=== PATIENT | male | born 1955 | race Caucasian/White ===

== ENCOUNTER → 2024-02-08 | Day surgery (SDC) | payer OTHER ==
[~2024-02-08] VITALS: Ht 162.5 cm; Wt 63.5 kg
[~2024-02-08] MED LIST: 'KLONOPIN0.5 MG PO; CLARITIN10 MG PO; DEPAKOTE ER250 MG PO; DULCOLAX STOOL100 M1 PO; FISH OIL 1,0001 EAC2 PO; Lactated Ringer's Solution 1,000 ML IV ONE; Lidocaine Hydrochloride 2% 10 ML AMP IM ONE; MAGNESIUM OXID400 MG PO; Mysoline50 MG PO; NAPHCON-A EYE D15 ML OD; PROPOFOL 200 MG/20 ML VIAL IV ONE; SPIRIVA RESPIMAT4 GM INH; TOPROL XL25 MG PO; VITAMIN B-121000 MC1 SL; VITAMIN D350 MCG PO; ZYPREXA20 M1 PO; fentaNYL CITRATE 100 MCG/2 ML VIAL IV ONE
[2024-02-08 08:16] VITALS: BP 151/79
[2024-02-08 11:40] VITALS: BP 96/64
[2024-02-08 11:55] VITALS: BP 104/61
[2024-02-08 12:10] VITALS: BP 102/63
== END | disposition home or self-care (01) ==
LOC: SDC 02-04 08:45
PROVIDERS: ATTEND Surgery
DX: R63.4 Abnormal weight loss (principal); I10 Essential (primary) hypertension; E78.5 Hyperlipidemia, unspecified; F41.9 Anxiety disorder, unspecified; F20.9 Schizophrenia, unspecified; F17.210 Nicotine dependence, cigarettes, uncomplicated; Z79.899 Other long term (current) drug therapy

== ENCOUNTER 2024-04-19 11:55 | Emergency (ER) | payer OTHER ==
[~2024-04-19 11:55] MED LIST changes: -Lactated Ringer's Solution 1,000 ML IV ONE; -Lidocaine Hydrochloride 2% 10 ML AMP IM ONE; -PROPOFOL 200 MG/20 ML VIAL IV ONE; -fentaNYL CITRATE 100 MCG/2 ML VIAL IV ONE
[2024-04-19 12:36] LABS: BASO # 0.1 10*3/uL (0.0-0.1); BASO % 0.5 % (0.0-1.0); EOS # 0.1 10*3/uL (0.0-0.4); HEMATOCRIT 38.9 % (42.0-52.0); LYMPH # 1.1 10*3/uL (1.3-4.4); LYMPH % 11.3 % (27.0-41.0); MEAN CELL VOLUME 91.5 fl (80.0-94.0); MEAN CORPUSCULAR HGB 31.8 pg (27.0-31.0); MEAN CORPUSCULAR HGB CONC 34.7 g/dl (33.0-37.0); MEAN PLATELET VOLUME 11.3 fl (9.6-12.3); MONO # 0.5 10*3/uL (0.1-1.0); MONO % 4.5 % (3.0-9.0); NEUT % 81.1 % (47.0-73.0); PLATELET COUNT AUTOMATED 190 10*3/uL (130-400); RED BLOOD COUNT 4.25 10*6/uL (4.50-5.90); RED CELL DISTRI WIDTH 13.2 % (0-14.5); WHITE BLOOD COUNT 9.9 10*3/uL (4.8-10.8)
[2024-04-19 13:00] LABS: BUN 12 mg/dl (9-23); CHLORIDE 108 mmol/L (98-107); POTASSIUM 3.3 mmol/L (3.4-5.1)
== END 2024-04-19 15:56 | disposition home or self-care (01) ==
LOC: ED 11:55
PROVIDERS: Internal Medicine
DX: T17.928A Food in respiratory tract, part unspecified causing other injury, initial encounter (principal); W44.F3XA Food entering into or through a natural orifice, initial encounter; Y93.89 Activity, other specified; Y92.89 Other specified places as the place of occurrence of the external cause; Y99.8 Other external cause status

== ENCOUNTER 2024-08-30 20:58 | Inpatient (IN) | payer OTHER ==
[~2024-08-30] VITALS: Ht 162.5 cm; Wt 57.0 kg
[~2024-08-30 20:58] MED LIST changes: +B121000 MCG/2 IM; +DEPAKOTE125 M1 PO; +EXEL13.31 T; +FLUVOXAMINE100 MG PO; +FLUVOXAMINE50 MG PO; +NAMENDA-5 PO; +NICODERM CQ1 EAC2 T; +RISPERDAL3 M1 PO
[2024-08-30 21:03] VITALS: BP 110/60
[2024-08-30 21:41] LABS: BASO % 0.2 % (0.0-1.0); EOS # 0.1 10*3/uL (0.0-0.4); EOS % 1.1 % (1.0-4.0); HEMATOCRIT 35.4 % (42.0-52.0); MEAN CELL VOLUME 92.9 fl (80.0-94.0); MEAN CORPUSCULAR HGB 31.5 pg (27.0-31.0); MEAN CORPUSCULAR HGB CONC 33.9 g/dl (33.0-37.0); MEAN PLATELET VOLUME 11.1 fl (9.6-12.3); MONO # 0.5 10*3/uL (0.1-1.0); MONO % 5.6 % (3.0-9.0); NEUT # 7.9 10*3/uL (2.3-7.9); PLATELET COUNT AUTOMATED 161 10*3/uL (130-400); RED BLOOD COUNT 3.81 10*6/uL (4.50-5.90); RED CELL DISTRI WIDTH 13.5 % (0-14.5); WHITE BLOOD COUNT 9.5 10*3/uL (4.8-10.8)
[2024-08-30 22:03] LABS: BUN 16 mg/dl (9-23); CHLORIDE 106 mmol/L (98-107); POTASSIUM 4.1 mmol/L (3.4-5.1)
[2024-08-30 22:04] LABS: ETHYL ALCOHOL < 3.0 mg/dl (<3)
[2024-08-30 23:02] LABS: BILIRUBIN Negative (Negative); BLOOD Negative (Negative); CLARITY Clear (Clear); COLOR Yellow (Yellow); GLUCOSE Negative (Negative); KETONE Negative (Negative); LEUKO ESTERASE Negative (Negative); NITRITE Negative (Negative); PH 7.5 (4.5-8.0); SPECIFIC GRAVITY <= 1.005 (1.001-1.030); UROBILINOGEN 0.2 E.U./dl (0.0-1.0)
[2024-08-30 23:09] LABS: URINE AMPHETAMINES Negative (1000ng/ml); URINE BARBITURATES Negative (200ng/ml); URINE BENZODIAZEPINES Negative (200ng/ml); URINE CANNABINOIDS (THC) Negative (50ng/ml); URINE COCAINE Negative (300ng/ml); URINE METHADONE Negative (300ng/ml); URINE OPIATES Negative (300ng/ml); URINE PHENCYCLIDINE Negative (25ng/ml)
[2024-08-30 23:38] LABS: RBC 0-2 rbc/hpf (0-2); WBC 0-2 wbc/hpf (0-5)
[2024-08-31] MEDS ORDERED: HYDROXYZINE PAM50 MG PO (01:24)
[2024-08-31] MEDS ORDERED: ATIVAN0.5 MG PO ×2 (01:25→01:26)
[2024-08-31] MEDS ORDERED: Magnesium Hydroxide 30 ML UDC PO PRN (01:55)
[2024-08-31] MEDS ORDERED: MG-AL HYDROXIDE/SIMETICONE 30 ML UDC PO PRN (01:55)
[2024-08-31] MEDS ORDERED: ACETAMINOPHEN 325 MG TAB PO PRN (01:55)
[2024-08-31 01:59] VITALS: BP 141/70
[2024-08-31] MEDS ORDERED: Menthol/Zinc Oxide 4 GM THIN T PRN (02:00)
[2024-08-31] MEDS ORDERED: FISH OIL 1,0001 EAC1 PO (02:16)
[2024-08-31] MEDS ORDERED: POLYTRIM 1000010 ML OU (02:27)
[2024-08-31] MEDS ORDERED: SODIUM CHLORI1000 M5 PO (02:34)
[2024-08-31] MEDS ORDERED: VITAMIN B121000 MC3 PO (02:38)
[2024-08-31] MEDS ORDERED: SEPTDS PO (02:41)
[2024-08-31] MEDS ORDERED: RISPERIDONE 250 MG/0.7 ML SQ SCH ×2 (02:50→09:00)
[2024-08-31 02:54] VITALS: BP 141/70
[2024-08-31] MEDS ORDERED: Ziprasidone Mesylate 20 MG VIAL IM PRN (02:55)
[2024-08-31] MEDS ORDERED: hydrOXYzine hydrochloride 50 MG/ML VIAL IM PRN (02:55)
[2024-08-31] MEDS ORDERED: LORazepam 1 MG TAB PO PRN (02:55)
[2024-08-31] MEDS ORDERED: IPRATROPIUM BROMIDE 0.5 MG/2.5 ML AMP NEB SCH (04:25)
[2024-08-31 07:25] LABS: VALPROIC ACID (DEPAKENE) 34.9 ug/ml (50-100)
[2024-08-31 07:45] LABS: VITAMIN D, 25-HYDROXY 63.1 ng/mL (30-100)
[2024-08-31 08:29] VITALS: BP 118/71
[2024-08-31] MEDS ORDERED: fluvoxaMINE Maleate 50 MG TAB PO SCH ×2 (09:00→21:00)
[2024-08-31] MEDS ORDERED: DIVALPROEX (DR) 500 MG TAB PO SCH (09:00)
[2024-08-31] MEDS ORDERED: Sulfamethoxazole/Trimethopri 1 TAB TAB PO SCH (09:00)
[2024-08-31] MEDS ORDERED: Memantine Hydrochloride 5 MG TAB PO SCH (09:00)
[2024-08-31] MEDS ORDERED: DIVALPROEX SODIUM 125 MG TAB PO SCH (09:00)
[2024-08-31] MEDS ORDERED: RIVASTIGMINE 13.3 MG/24 HR TDM T SCH (09:00)
[2024-08-31] MEDS ORDERED: DOCUSATE SODIUM 100 MG CAP PO SCH (10:00)
[2024-08-31] MEDS ORDERED: LORATADINE 10 MG TAB PO SCH (10:00)
[2024-08-31] MEDS ORDERED: Nicotine 21 MG PATCH T SCH (10:00)
[2024-08-31] MEDS ORDERED: Cholecalciferol 2,000 UNIT TABLET (50 MCG) PO SCH (10:00)
[2024-08-31] MEDS ORDERED: METOPROLOL SUCCINATE XR 25 MG TAB PO SCH (10:00)
[2024-08-31] MEDS ORDERED: HALOPERIDOL 5 MG TAB PO ONE (11:15)
[2024-08-31] MEDS ORDERED: Water, Sterile 10 ML VIAL ONE (15:30)
[2024-08-31] MEDS ORDERED: HALOPERIDOL 5 MG TAB PO PRN (16:40)
[2024-08-31] MEDS ORDERED: Haloperidol Lactate 5 MG/ML AMP ONE (19:14)
[2024-08-31] MEDS ORDERED: diphenhydrAMINE hydrochloride 50 MG/ML VIAL ONE (19:14)
[2024-08-31 20:00] VITALS: BP 97/64
[2024-09-01 07:25] VITALS: BP 98/64
[2024-09-01] MEDS ORDERED: IPRATROPIUM BROMIDE 0.5 MG/2.5 ML AMP NEB PRN (08:20)
[2024-09-01] MEDS ORDERED: diphenhydrAMINE hydrochloride 25 MG CAP PO ONE (09:25)
[2024-09-01] MEDS ORDERED: HALOPERIDOL 5 MG TAB PO ONE (09:25)
[2024-09-01] MEDS ORDERED: Ziprasidone Mesylate 20 MG VIAL IM ONE (10:55)
[2024-09-01] MEDS ORDERED: Water, Sterile 10 ML VIAL IM ONE (11:05)
[2024-09-01] MEDS ORDERED: SODIUM CHLORIDE 0.9% 1,000 ML IV ONE (13:30)
[2024-09-01] MEDS ORDERED: diphenhydrAMINE hydrochloride 25 MG CAP PO SCH (18:00)
[2024-09-01] MEDS ORDERED: HALOPERIDOL 5 MG TAB PO SCH (18:00)
[2024-09-01 20:00] VITALS: BP 141/76
[2024-09-01] MEDS ORDERED: chlorproMAZINE Hydrochloride 50 MG/2 ML AMP IM PRN (21:15)
[2024-09-02 08:00] VITALS: BP 113/80
[2024-09-02] MEDS ORDERED: HALOPERIDOL DECANOATE 100 MG/ML AMP IM SCH (09:00)
[2024-09-02] MEDS ORDERED: Nicotine 14 MG PATCH T SCH (11:00)
[2024-09-02] MEDS ORDERED: [UNRECOGNIZED DRUG - OTHER] PO SCH (13:00)
[2024-09-02 20:00] VITALS: BP 108/68
[2024-09-03 08:00] VITALS: BP 108/67
[2024-09-03] MEDS ORDERED: clonAZEPAM 0.5 MG TAB PO ONE (11:45)
[2024-09-03] MEDS ORDERED: clonAZEPAM 0.5 MG TAB PO SCH (16:00)
[2024-09-03 20:00] VITALS: BP 109/68
[2024-09-04 08:00] VITALS: BP 102/72
[2024-09-04 08:26] LABS: BUN 14 mg/dl (9-23); CHLORIDE 100 mmol/L (98-107); POTASSIUM 4.3 mmol/L (3.4-5.1)
[2024-09-04 08:29] LABS: CPK 302 U/L (34-171)
[2024-09-04] MEDS ORDERED: clonAZEPAM 0.5 MG TAB PO ONE (15:00)
[2024-09-04 20:00] VITALS: BP 106/60
[2024-09-04] MEDS ORDERED: clonAZEPAM 0.5 MG TAB PO SCH ×2 (21:00)
[2024-09-05 08:00] VITALS: BP 95/58
[2024-09-05] MEDS ORDERED: [UNRECOGNIZED DRUG - OTHER] PO SCH ×2 (13:00→21:00)
[2024-09-05 20:00] VITALS: BP 91/64
[2024-09-06] MEDS ORDERED: [UNRECOGNIZED DRUG - OTHER] PO SCH ×2 (07:00→21:00)
[2024-09-06 08:00] VITALS: BP 104/77
[2024-09-06] MEDS ORDERED: Nicotine 14 MG PATCH T SCH (09:00)
[2024-09-06] MEDS ORDERED: fluvoxaMINE Maleate 50 MG TAB PO SCH ×2 (09:00→21:00)
[2024-09-06 20:00] VITALS: BP 102/72
[2024-09-07 06:29] LABS: BASO % 0.5 % (0.0-1.0); EOS # 0.3 10*3/uL (0.0-0.4); EOS % 3.8 % (1.0-4.0); MEAN CELL VOLUME 92.4 fl (80.0-94.0); MEAN CORPUSCULAR HGB 31.7 pg (27.0-31.0); MEAN CORPUSCULAR HGB CONC 34.2 g/dl (33.0-37.0); MONO # 0.5 10*3/uL (0.1-1.0); MONO % 6.7 % (3.0-9.0); NEUT # 4.8 10*3/uL (2.3-7.9); NEUT % 60.6 % (47.0-73.0); PLATELET COUNT AUTOMATED 194 10*3/uL (130-400); RED BLOOD COUNT 3.57 10*6/uL (4.50-5.90); RED CELL DISTRI WIDTH 13.2 % (0-14.5); WHITE BLOOD COUNT 7.9 10*3/uL (4.8-10.8)
[2024-09-07 06:35] LABS: ALKALINE PHOSPHATASE 42 U/L (46-116); BUN 15 mg/dl (9-23); CHLORIDE 99 mmol/L (98-107); SGPT/ALT 15 U/L (5-49); TOTAL PROTEIN 5.7 gm/dL (6.0-8.0)
[2024-09-07 08:00] VITALS: BP 104/74
[2024-09-07 20:00] VITALS: BP 108/66
[2024-09-08 08:27] VITALS: BP 146/90
[2024-09-08] MEDS ORDERED: VITAMIN E 400 IU CAP PO SCH (09:00)
[2024-09-08 20:36] VITALS: BP 109/68
[2024-09-08] MEDS ORDERED: [UNRECOGNIZED DRUG - OTHER] PO SCH (21:00)
[2024-09-08] MEDS ORDERED: RAMELTEON 8 MG TAB PO SCH (21:00)
[2024-09-09 08:00] VITALS: BP 108/88
[2024-09-09 12:24] LABS: ALKALINE PHOSPHATASE 44 U/L (46-116); BUN 14 mg/dl (9-23); CHLORIDE 99 mmol/L (98-107); POTASSIUM 3.9 mmol/L (3.4-5.1); SGPT/ALT 16 U/L (5-49); TOTAL PROTEIN 6.2 gm/dL (6.0-8.0)
[2024-09-09 17:39] LABS: BILIRUBIN Negative (Negative); BLOOD Negative (Negative); CLARITY Cloudy (Clear); COLOR Yellow (Yellow); GLUCOSE Negative (Negative); KETONE Trace (Negative); LEUKO ESTERASE 2+ (Negative); NITRITE Negative (Negative)
[2024-09-09 18:00] LABS: BACTERIA TRACE; EPITHELIAL CELLS 0-2
[2024-09-09 20:00] VITALS: BP 96/61
[2024-09-09] MEDS ORDERED: CEFDINIR 300 MG CAP PO SCH (21:00)
[2024-09-10 08:00] VITALS: BP 98/68
[2024-09-10 20:00] VITALS: BP 104/74
[2024-09-11 08:00] VITALS: BP 130/61
[2024-09-11 20:30] VITALS: BP 101/64
[2024-09-12 08:00] VITALS: BP 92/60
[2024-09-12] MEDS ORDERED: LORazepam 1 MG TAB PO PRN (10:35)
[2024-09-12 20:00] VITALS: BP 104/74
[2024-09-13 08:46] VITALS: BP 96/57
[2024-09-13 20:00] VITALS: BP 97/51
[2024-09-14 05:48] LABS: ALKALINE PHOSPHATASE 36 U/L (46-116); BUN 19 mg/dl (9-23); CHLORIDE 96 mmol/L (98-107); POTASSIUM 4.8 mmol/L (3.4-5.1); SGPT/ALT 13 U/L (5-49)
[2024-09-14 06:17] LABS: BASO # 0.1 10*3/uL (0.0-0.1); BASO % 0.7 % (0.0-1.0); EOS # 0.3 10*3/uL (0.0-0.4); EOS % 2.7 % (1.0-4.0); HEMATOCRIT 34.5 % (42.0-52.0); MEAN CORPUSCULAR HGB 31.4 pg (27.0-31.0); MONO # 0.9 10*3/uL (0.1-1.0); MONO % 9.9 % (3.0-9.0); NEUT # 6.1 10*3/uL (2.3-7.9); NEUT % 65.9 % (47.0-73.0); PLATELET COUNT AUTOMATED 174 10*3/uL (130-400); RED BLOOD COUNT 3.63 10*6/uL (4.50-5.90); RED CELL DISTRI WIDTH 13.7 % (0-14.5); WHITE BLOOD COUNT 9.2 10*3/uL (4.8-10.8)
[2024-09-14 08:00] VITALS: BP 129/89
[2024-09-14 20:00] VITALS: BP 122/72
[2024-09-14] MEDS ORDERED: DIVALPROEX (DR) 250 MG TAB PO SCH (21:00)
[2024-09-15] MEDS ORDERED: Ziprasidone Mesylate 20 MG VIAL IM ONE ×2 (00:35→00:57)
[2024-09-15 08:44] VITALS: BP 103/66
[2024-09-15] MEDS ORDERED: RAMELTEON8 MG PO (10:25)
[2024-09-15] MEDS ORDERED: FLUVOXAMINE50 MG PO ×2 (10:25)
[2024-09-15] MEDS ORDERED: NAMENDA-5 PO (10:25)
[2024-09-15] MEDS ORDERED: THORAZINE100 MG PO ×2 (10:25)
[2024-09-15] MEDS ORDERED: UZEDY250 MG/0.7 SQ (10:25)
[2024-09-15] MEDS ORDERED: DIVALPROEX SOD250 MG PO (10:25)
[2024-09-15] MEDS ORDERED: VITAMIN E180 M1 PO (10:25)
[2024-09-15] MEDS ORDERED: RIVASTIGMINE1 EAC2 T (10:25)
[2024-09-15] MEDS ORDERED: NICODERM T (10:59)
[2024-09-15] MEDS ORDERED: CEFDINIR300 MG PO (10:59)
[2024-09-15 20:00] VITALS: BP 106/70
[2024-09-16 08:00] VITALS: BP 99/58
[2024-09-16] MEDS ORDERED: DOCUSATE SODIUM 100 MG CAP PO SCH (09:00)
[2024-09-16] MEDS ORDERED: LORATADINE 10 MG TAB PO SCH (09:00)
[2024-09-16] MEDS ORDERED: Cholecalciferol 2,000 UNIT TABLET (50 MCG) PO SCH (09:00)
[2024-09-16] MEDS ORDERED: METOPROLOL SUCCINATE XR 25 MG TAB PO SCH (09:00)
[2024-09-16 20:00] VITALS: BP 94/60
[2024-09-17 08:42] VITALS: BP 117/69
[2024-09-17 20:00] VITALS: BP 99/68
[2024-09-18 08:00] VITALS: BP 101/97
[2024-09-18 20:12] VITALS: BP 114/63
[2024-09-18] MEDS ORDERED: DIVALPROEX SODIUM 125 MG TAB PO SCH (21:00)
[2024-09-19 06:46] LABS: BASO # 0.1 10*3/uL (0.0-0.1); BASO % 0.6 % (0.0-1.0); EOS # 0.1 10*3/uL (0.0-0.4); EOS % 0.4 % (1.0-4.0); HEMATOCRIT 37.8 % (42.0-52.0); MEAN CELL VOLUME 95.7 fl (80.0-94.0); MEAN CORPUSCULAR HGB 31.1 pg (27.0-31.0); MEAN CORPUSCULAR HGB CONC 32.5 g/dl (33.0-37.0); MEAN PLATELET VOLUME 11.6 fl (9.6-12.3); MONO # 1.4 10*3/uL (0.1-1.0); MONO % 10.1 % (3.0-9.0); NEUT # 10.7 10*3/uL (2.3-7.9); NEUT % 77.8 % (47.0-73.0); PLATELET COUNT AUTOMATED 220 10*3/uL (130-400); RED BLOOD COUNT 3.95 10*6/uL (4.50-5.90); RED CELL DISTRI WIDTH 14.5 % (0-14.5); WHITE BLOOD COUNT 13.8 10*3/uL (4.8-10.8)
[2024-09-19 08:00] VITALS: BP 115/78
[2024-09-19 08:02] LABS: ALKALINE PHOSPHATASE 46 U/L (46-116); BUN 20 mg/dl (9-23); CHLORIDE 105 mmol/L (98-107); POTASSIUM 4.1 mmol/L (3.4-5.1); SGPT/ALT 19 U/L (5-49); TOTAL PROTEIN 6.9 gm/dL (6.0-8.0)
[2024-09-19 09:01] LABS: BILIRUBIN Negative (Negative); BLOOD Trace-Intact (Negative); CLARITY Cloudy (Clear); COLOR Yellow (Yellow); GLUCOSE Negative (Negative); KETONE Negative (Negative); LEUKO ESTERASE 2+ (Negative); NITRITE Positive (Negative); PH 7.5 (4.5-8.0); UROBILINOGEN 0.2 E.U./dl (0.0-1.0)
[2024-09-19 10:22] LABS: BACTERIA 3+; WBC TNTC wbc/hpf (0-5)
[2024-09-19] MEDS ORDERED: DIVALPROEX (DR) 250 MG TAB PO SCH (13:00)
[2024-09-19 20:00] VITALS: BP 109/61
[2024-09-19] MEDS ORDERED: CEFDINIR 300 MG CAP PO SCH (21:00)
[2024-09-20 06:29] LABS: BASO # 0.1 10*3/uL (0.0-0.1); BASO % 0.8 % (0.0-1.0); EOS # 0.3 10*3/uL (0.0-0.4); EOS % 2.2 % (1.0-4.0); HEMATOCRIT 37.3 % (42.0-52.0); MEAN CELL VOLUME 98.2 fl (80.0-94.0); MEAN CORPUSCULAR HGB 31.3 pg (27.0-31.0); MEAN CORPUSCULAR HGB CONC 31.9 g/dl (33.0-37.0); MEAN PLATELET VOLUME 11.7 fl (9.6-12.3); MONO # 1.1 10*3/uL (0.1-1.0); MONO % 8.3 % (3.0-9.0); NEUT # 8.9 10*3/uL (2.3-7.9); NEUT % 70.4 % (47.0-73.0); PLATELET COUNT AUTOMATED 226 10*3/uL (130-400); RED CELL DISTRI WIDTH 14.8 % (0-14.5); WHITE BLOOD COUNT 12.7 10*3/uL (4.8-10.8)
[2024-09-20 08:17] VITALS: BP 112/66
[2024-09-20] MEDS ORDERED: SODIUM CHLORIDE 0.9% 1,000 ML IV ONE (08:25)
[2024-09-20] MEDS ORDERED: Memantine Hydrochloride 5 MG TAB PO SCH (09:00)
[2024-09-20 11:06] LABS: ALKALINE PHOSPHATASE 47 U/L (46-116); BUN 23 mg/dl (9-23); CHLORIDE 107 mmol/L (98-107); POTASSIUM 3.9 mmol/L (3.4-5.1); SGPT/ALT 18 U/L (5-49); TOTAL PROTEIN 6.8 gm/dL (6.0-8.0)
[2024-09-20] MEDS ORDERED: hydrOXYzine pamoate 25 MG CAP PO ONE (12:40)
[2024-09-20 20:00] VITALS: BP 112/66
[2024-09-20] MEDS ORDERED: Memantine Hydrochloride 10 MG TAB PO SCH (21:00)
[2024-09-21 08:00] VITALS: BP 125/83
[2024-09-21] MEDS ORDERED: LORazepam 1 MG TAB PO PRN (12:45)
[2024-09-21] MEDS ORDERED: DIVALPROEX (DR) 500 MG TAB PO SCH (13:00)
[2024-09-21] MEDS ORDERED: SODIUM CHLORIDE 0.9% 1,000 ML IV ONE (14:05)
[2024-09-21 19:23] LABS: BUN 30 mg/dl (9-23); CHLORIDE 109 mmol/L (98-107); POTASSIUM 4.6 mmol/L (3.4-5.1)
[2024-09-21 20:00] VITALS: BP 117/86
[2024-09-22 06:13] LABS: BASO # 0.1 10*3/uL (0.0-0.1); EOS # 0.2 10*3/uL (0.0-0.4); EOS % 2.2 % (1.0-4.0); HEMATOCRIT 38.1 % (42.0-52.0); MEAN CELL VOLUME 97.4 fl (80.0-94.0); MEAN CORPUSCULAR HGB 31.5 pg (27.0-31.0); MEAN CORPUSCULAR HGB CONC 32.3 g/dl (33.0-37.0); MEAN PLATELET VOLUME 11.3 fl (9.6-12.3); MONO # 0.9 10*3/uL (0.1-1.0); MONO % 8.2 % (3.0-9.0); NEUT # 7.3 10*3/uL (2.3-7.9); NEUT % 67.5 % (47.0-73.0); PLATELET COUNT AUTOMATED 223 10*3/uL (130-400); RED BLOOD COUNT 3.91 10*6/uL (4.50-5.90); RED CELL DISTRI WIDTH 14.5 % (0-14.5); WHITE BLOOD COUNT 10.8 10*3/uL (4.8-10.8)
[2024-09-22 06:39] LABS: BUN 26 mg/dl (9-23); CHLORIDE 108 mmol/L (98-107); CPK 266 U/L (34-171); POTASSIUM 4.4 mmol/L (3.4-5.1)
[2024-09-22 08:00] VITALS: BP 100/69
[2024-09-22 20:00] VITALS: BP 101/74
[2024-09-23 09:25] VITALS: BP 130/72
[2024-09-23 20:00] VITALS: BP 99/61
[2024-09-23] MEDS ORDERED: Memantine Hydrochloride 10 MG TAB PO SCH (21:00)
[2024-09-24 08:00] VITALS: BP 124/86
[2024-09-24 20:00] VITALS: BP 101/66
[2024-09-25 08:00] VITALS: BP 137/76
[2024-09-25 20:00] VITALS: BP 111/70
[2024-09-26 06:29] LABS: BASO # 0.1 10*3/uL (0.0-0.1); EOS # 0.3 10*3/uL (0.0-0.4); HEMATOCRIT 42.8 % (42.0-52.0); MEAN CELL VOLUME 92.4 fl (80.0-94.0); MEAN CORPUSCULAR HGB 30.9 pg (27.0-31.0); MEAN CORPUSCULAR HGB CONC 33.4 g/dl (33.0-37.0); MEAN PLATELET VOLUME 10.4 fl (9.6-12.3); MONO # 0.7 10*3/uL (0.1-1.0); NEUT % 64.7 % (47.0-73.0); PLATELET COUNT AUTOMATED 213 10*3/uL (130-400); RED BLOOD COUNT 4.63 10*6/uL (4.50-5.90); RED CELL DISTRI WIDTH 13.8 % (0-14.5); WHITE BLOOD COUNT 9.2 10*3/uL (4.8-10.8)
[2024-09-26 07:24] LABS: ALKALINE PHOSPHATASE 47 U/L (46-116); BUN 24 mg/dl (9-23); CHLORIDE 104 mmol/L (98-107); POTASSIUM 4.2 mmol/L (3.4-5.1); SGPT/ALT 11 U/L (5-49); TOTAL PROTEIN 7.1 gm/dL (6.0-8.0); VALPROIC ACID (DEPAKENE) 54.1 ug/ml (50-100)
[2024-09-26 08:05] VITALS: BP 121/77
[2024-09-26] MEDS ORDERED: VITAMIN D350 MCG PO (12:14)
[2024-09-26] MEDS ORDERED: THORAZINE100 MG PO (12:14)
[2024-09-26] MEDS ORDERED: MEMANTINE HCL10 MG PO (12:14)
[2024-09-26] MEDS ORDERED: DIVALPROEX SOD500 MG PO (12:14)
[2024-09-26] MEDS ORDERED: EXEL13.31 T (12:14)
[2024-09-26] MEDS ORDERED: NAMENDA-5 PO (12:14)
[2024-10-29] MEDS ORDERED: RISPERIDONE 250 MG/0.7 ML SQ SCH (09:00)
== END 2024-09-26 13:58 | DRG 761 ==
LOC: ED 20:58 → 3N 08-31 01:38
PROVIDERS: Counselor Professional; Emergency Medicine; Internal Medicine; Registered Nurse; ADMIT Psychiatry & Neurology Psychiatry; ATTEND Psychiatry & Neurology Psychiatry
PROC: GZHZZZZ Group Psychotherapy (ICD-10-PCS; principal; 2024-08-31)
PROC: GZ51ZZZ Individual Psychotherapy, Behavioral (ICD-10-PCS; 2024-08-31)
DX: F25.9 Schizoaffective disorder, unspecified (principal); D50.9 Iron deficiency anemia, unspecified; E55.9 Vitamin D deficiency, unspecified; F42.9 Obsessive-compulsive disorder, unspecified; G31.84 Mild cognitive impairment of uncertain or unknown etiology; N30.00 Acute cystitis without hematuria; F41.9 Anxiety disorder, unspecified; R73.9 Hyperglycemia, unspecified; J44.9 Chronic obstructive pulmonary disease, unspecified; I10 Essential (primary) hypertension; K59.09 Other constipation; E53.8 Deficiency of other specified B group vitamins; F17.200 Nicotine dependence, unspecified, uncomplicated; F32.A Depression, unspecified